=== PATIENT | male | born 2000 | race Caucasian/White ===

== ENCOUNTER 2022-02-09 07:49 | Emergency (ER) | payer OTHER, SELFPAY ==
[2022-02-09 08:01] VITALS: BP 134/89; PULSE 64; RESP 18; TEMP 36.3; O2SAT 99; BMI 28.7
--- NOTE | 2022-02-09 08:45 | ED.GENADULT ---
HPI - General Adult General Chief complaint: Dizziness/Vertigo Stated complaint: constipation/headache/dizzy/weakness Time Seen by Provider: 02/09/22 08:03 History of Present Illness HPI narrative: 21-year-old man presenting to the emergency department with 2 days of just feeling unwell. A general sense of nausea. Has not vomited. Mild headache. No visual disturbance. No fever. No rash. Is constipated. Notes himself to normally have daily bowel movements but it has been a couple of days now. Is lightheaded when he goes to to stand. Not actually dizzy. Does have a history of headaches. 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 He also says he has never been in the emergency department by himself. Problem List Medical Problems: Amblyopia Wears glasses; Followed At 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 Surgical Problems: No pertinent past surgical history Family History Problems: Family history of thyroid disease Mother and PGM. Family history of multiple sclerosis Paternal grandfather and paternal great uncle. Social History Problems: No secondhand smoke exposure Past Problems Medical Problems: Thrombocytopenia Anemia Past Medical History Past Medical History: Yes Other Medical Problems; No COPD, No Asthma (PNX), No High Blood Pressure, No Congestive Heart Failure, No Coronary Artery Disease, No Diabetes, No Stroke, No Cardiac Arrhythmia, No Stomach Problems, No Irritable Bowel Syndrome, No Reflux (GERD), No Cancer, No Seizures Other Medical Problems Comment: frias syndrom bile duct syndrome Related Data Home Medications Medication Instructions Recorded Confirmed sirolimus 1 mg tablet mg PO 02/09/22 Allergies Allergy/AdvReac Type Severity Reaction Status Date / Time No Known Drug Allergies Allergy Verified 02/09/22 08:01 Review of Systems Status of ROS: Reports: 6 or more systems reviewed and unremarkable except as noted in History and below PFSH PFSH Social History Smoking Status: Never smoker How often do you have a drink containing alcohol: never AUDIT-C Alcohol total score: 0 Non-prescribed substance use: denies use Exam Narrative: Exam Narrative: Tall stature. Mild conjunctival injection. Slightly congested. Cranial nerves 2-12 intact. He is breathing easily. Lungs are clear. Neck is supple. Does not resist rotation movement of his neck. Cardiovascular was regular rate and rhythm no murmurs rubs or gallops appreciated. Abdomen is soft a little overweight nontender. Normoactive bowel sounds Moving all extremities without difficulty. There is no peripheral edema. Skin is warm and dry without evidence of trauma, no active bleeding/bruising. Const: Vital Signs, click to edit/add: Vital Signs - 24 hr 02/09/22 08:01 02/09/22 09:20 02/09/22 11:15 Temperature 97.3 F L 97.3 F L Pulse Rate [Left P ulse Oximeter] 64 64 Pulse Rate [orthos tatic lying] 60 Pulse Rate [orthos tatic sitting] 62 Pulse Rate [orthos tatic standing] 64 Respiratory Rate 18 18 Blood Pressure [Le ft Upper Arm] 134/89 124/89 Blood Pressure [or thostatic lying] 139/94 H Blood Pressure [or thostatic sitting] 130/92 H Blood Pressure [or thostatic standing ] 124/89 Pulse Oximetry 99 Oxygen Delivery Me thod Room Air Documenting provider has reviewed patient's vital signs: yes Course Course Hospital Course: He would like some relief of his headache and so IV was established. With his concerns of ?low blood? a recheck. I did review records and I believe nearly 2 weeks ago had a hemoglobin [place] 13 [place] [id number]. Reevaluation(s) Reevaluation #1: Was requesting departure as hydration and antiemetic had relieved him of his headache. Consultations Consultation #1: Spoke with mom. She thinks that lack of sleep and not taking good care of himself, being a teenager, has caught up with him and that is really with contributed to his headache. His medications as well as can evidently cause constipation. They are familiar with dealing with this, some treatment involves MiraLax. Vital Signs Vital signs: Initial Vital Signs Temperature 97.3 F L 02/09/22 08:01 Temperature Source Temporal Artery Scan 02/09/22 08:01 Pulse Rate 64 02/09/22 08:01 Respiratory Rate 18 02/09/22 08:01 Blood Pressure 134/89 02/09/22 08:01 Blood Pressure Mean 104 02/09/22 08:01 Blood Pressure Position Sitting 02/09/22 08:01 Pulse Oximetry 99 02/09/22 08:01 Oxygen Delivery Method 02/09/22 08:01 Vital Signs Temperature 97.3 F L 02/09/22 08:01 Pulse Rate 64 02/09/22 08:01 Respiratory Rate 18 02/09/22 08:01 Blood Pressure 134/89 02/09/22 08:01 Pulse Oximetry 99 02/09/22 08:01 Oxygen Delivery Method 02/09/22 08:01 Temperature 97.3 F L 02/09/22 11:15 Pulse Rate 64 02/09/22 11:15 Respiratory Rate 18 02/09/22 11:15 Blood Pressure 124/89 02/09/22 11:15 Pulse Oximetry 99 02/09/22 08:01 Oxygen Delivery Method 02/09/22 08:01 Medical Decision Making MDM Narrative Medical decision making narrative: Hemoglobin looks to be stable and platelets increased since last checked. Marlo declined abdominal x-ray which I was doing just for evaluation of degree of constipation with underlying nausea. Declined partly because mom felt unnecessary; I do not entirely disagree. EKG was also done showing sinus bradycardia a rate of 59. CRP was not elevated. Chemistries normal and COVID testing was negative Lab Data Labs: Lab Results 02/09/22 02/09/22 02/09/22 Range/Units 09:37 09:37 09:37 WBC 5.77 (4.50-11.00) K/uL RBC 4.92 (4.30-5.90) m/uL Hgb 13.3 L (13.5-17.5) gm/dL Hct 39.3 (37.0-53.0) % MCV 80 (80-100) fL MCH 27 (26-34) pg MCHC 34 (32-36) gm/dL RDW Coeff of Grecia 13.1 (11.5-15.5) % Plt Count 92 L (140-440) K/uL Neut % (Auto) 50.2 (42.0-72.0) % Lymph % (Auto) 40.9 (20-44) % Garden % (Auto) 8.0 (0.0-11.0) % Eos % (Auto) 0.5 (0.0-7.0) % Baso % (Auto) 0.2 (0.0-3.0) % Neut # (Auto) 2.90 (1.7-7.0) K/uL Lymph # (Auto) 2.36 (0.90-2.90) K/uL Garden # (Auto) 0.50 (0.00-0.90) K/UL Eos # (Auto) 0.03 (0.00-0.50) K/uL Baso # (Auto) 0.01 (0.00-0.30) K/uL Abs Immat Gran (auto) 0.01 (0.00-0.30) K/uL Sodium 140 (135-149) mmol/L Potassium 4.2 (3.6-5.1) mmol/L Chloride 105 (96-114) mmol/L Carbon Dioxide 26 (20-32) mmol/L BUN 11 (5-24) mg/dL Creatinine 0.8 (0.6-1.2) mg/dL Estimated Creat Clear 177.51 Estimated GFR 131 ml/min Glucose 112 (60-115) mg/dL Calcium 9.6 (8.7-10.8) mg/dL Total Bilirubin 0.4 (0.1-1.5) mg/dL AST 24 (12-35) U/L ALT 22 (4-50) U/L Alkaline Phosphatase 128 (65-260) U/L C-Reactive Protein < 0.5 L (0.5-1.0) mg/dL Total Protein 7.5 (6.0-8.3) g/dL Albumin 4.6 (3.3-5.0) g/dL SARS-CoV-2 (PCR) Negative SARS-CoV-2 (Negative) Discharge Plan Discharge Clinical Impression: Headache, Constipation Patient Disposition: Home, Self-Care Condition: Improved Additional Instructions: Focus on hydration. In persons prone to headaches I do think it is important to get regular and quality sleep. A regular schedule helps with this. Also a little heart pumping exercise daily is a good idea. I will call you with results of chemistries and COVID if we need to discuss them. Otherwise presume they're within normal limits/negative. Prescriptions: No Action sirolimus 1 mg tablet PO Label Comments: TAKE THREE TABLETS BY MOUTH EVERY DAY Follow Up/Referrals: Fabio Campos MD [Referring] - Stand Alone [facility]
[2022-02-09 09:20] VITALS: BP 124/89; BP 130/92; BP 139/94; PULSE 60; PULSE 62; PULSE 64
[2022-02-09] MEDS: 0.9 % SODIUM CHLORIDE 1000 ml 1,000 ML IV (09:40)
[2022-02-09 10:01] LABS: Basophils Absolute Auto 0.01 K/uL (0.00-0.30); Basophils Percent Auto 0.2 % (0.0-3.0); Eosinophils Absolute Auto 0.03 K/uL (0.00-0.50); Eosinophils Percent Auto 0.5 % (0.0-7.0); Hematocrit 39.3 % (37.0-53.0); Hemoglobin* 13.3 gm/dL (13.5-17.5); Immature Granulocytes Abs Auto 0.01 K/uL (0.00-0.30); Lymphocytes Absolute Auto 2.36 K/uL (0.90-2.90); Lymphocytes Percent Auto 40.9 % (20-44); Mean Corpuscular HGB Conc 34 gm/dL (32-36); Mean Corpuscular Hemoglobin 27 pg (26-34); Mean Corpuscular Volume 80 fL (80-100); Neutrophils Percent Auto 50.2 % (42.0-72.0); Platelet Count* 92 K/uL (140-440); RDW Coefficient of Variation % 13.1 % (11.5-15.5); Red Blood Count 4.92 m/uL (4.30-5.90); White Blood Count* 5.77 K/uL (4.50-11.00)
[2022-02-09 10:03] LABS: Slide Review Reflex No
[2022-02-09 10:54] LABS: Albumin* 4.6 g/dL (3.3-5.0); Chloride* 105 mmol/L (96-114)
[2022-02-09 10:55] LABS: Potassium* 4.2 mmol/L (3.6-5.1); Sodium* 140 mmol/L (135-149)
[2022-02-09 10:57] LABS: Bilirubin Total* 0.4 mg/dL (0.1-1.5); Creatinine* 0.8 mg/dL (0.6-1.2); Est. Creatinine Clearance* 177.51; Estimated Glomerular Filt Rate 131 ml/min
[2022-02-09 10:58] LABS: Alanine Aminotransferase* 22 U/L (4-50); Alkaline Phosphatase* 128 U/L (65-260); Aspartate Amino Transferase* 24 U/L (12-35); Blood Urea Nitrogen* 11 mg/dL (5-24); Calcium* 9.6 mg/dL (8.7-10.8); Carbon Dioxide* 26 mmol/L (20-32); Glucose* 112 mg/dL (60-115); Total Protein* 7.5 g/dL (6.0-8.3)
[2022-02-09 11:01] LABS: C Reactive Protein* < 0.5 mg/dL (0.5-1.0)
[2022-02-09 11:06] LABS: SARS PCR* Negative SARS-CoV-2 (Negative)
[2022-02-09 11:15] VITALS: BP 124/89; PULSE 64; RESP 18; TEMP 36.3
== END 2022-02-09 11:16 | disposition home or self-care (01) ==
PROVIDERS: Emergency Provider Family Medicine
DX: R51.9 Headache, unspecified (principal); K59.00 Constipation, unspecified
CPT/HCPCS: 36415; 80053; 85025; 86140; 87635; 93005; 96374; 99283; J7030

== ENCOUNTER 2023-12-02 10:09 | Outpatient (RCR) | payer OTHER, SELFPAY ==
[2021-12-15 16:19] LABS: Slide Review Reflex No
[2021-12-15 16:35] LABS: Basophils Absolute Auto 0.01 K/uL (0.00-0.30); Basophils Percent Auto 0.1 % (0.0-3.0); Eosinophils Absolute Auto 0.03 K/uL (0.00-0.50); Eosinophils Percent Auto 0.4 % (0.0-7.0); Hematocrit 41.2 % (37.0-53.0); Hemoglobin* 13.8 gm/dL (13.5-17.5); Immature Granulocytes Abs Auto 0.04 K/uL (0.00-0.30); Lymphocytes Absolute Auto 2.37 K/uL (0.90-2.90); Lymphocytes Percent Auto 31.6 % (20-44); Mean Corpuscular HGB Conc 34 gm/dL (32-36); Mean Corpuscular Hemoglobin 27 pg (26-34); Mean Corpuscular Volume 79 fL (80-100); Neutrophils Absolute Auto 4.45 K/uL (1.7-7.0); Neutrophils Percent Auto 59.4 % (42.0-72.0); Platelet Count* 84 K/uL (140-440); RDW Coefficient of Variation % 13.5 % (11.5-15.5); Red Blood Count 5.19 m/uL (4.30-5.90)
[2021-12-15 16:44] LABS: Alanine Aminotransferase* 34 U/L (4-50); Creatinine* 0.8 mg/dL (0.6-1.2); Estimated Glomerular Filt Rate 130.74
[2022-01-27 14:43] LABS: Basophils Absolute Auto 0.02 K/uL (0.00-0.30); Basophils Percent Auto 0.4 % (0.0-3.0); Eosinophils Absolute Auto 0.04 K/uL (0.00-0.50); Eosinophils Percent Auto 0.8 % (0.0-7.0); Hematocrit 39.3 % (37.0-53.0); Hemoglobin* 13.1 gm/dL (13.5-17.5); Immature Granulocytes Abs Auto 0.01 K/uL (0.00-0.30); Lymphocytes Absolute Auto 2.11 K/uL (0.90-2.90); Lymphocytes Percent Auto 43.3 % (20-44); Mean Corpuscular HGB Conc 33 gm/dL (32-36); Mean Corpuscular Hemoglobin 27 pg (26-34); Mean Corpuscular Volume 81 fL (80-100); Monocytes Percent Auto 8.2 % (0.0-11.0); Neutrophils Absolute Auto 2.29 K/uL (1.7-7.0); Neutrophils Percent Auto 47.1 % (42.0-72.0); Platelet Count* 78 K/uL (140-440); Red Blood Count 4.85 m/uL (4.30-5.90); White Blood Count* 4.87 K/uL (4.50-11.00)
[2022-01-27 14:48] LABS: Slide Review Reflex No
[2022-01-27 15:01] LABS: Alanine Aminotransferase* 18 U/L (4-50); Creatinine* 0.8 mg/dL (0.6-1.2); Estimated Glomerular Filt Rate 131 ml/min
[2022-05-03 15:46] LABS: Basophils Absolute Auto 0.02 K/uL (0.00-0.30); Basophils Percent Auto 0.3 % (0.0-3.0); Eosinophils Absolute Auto 0.09 K/uL (0.00-0.50); Eosinophils Percent Auto 1.2 % (0.0-7.0); Hematocrit 41.1 % (37.0-53.0); Hemoglobin* 13.8 gm/dL (13.5-17.5); Immature Granulocytes Abs Auto 0.01 K/uL (0.00-0.30); Immature Granulocytes Pct Auto 0.1 %; Lymphocytes Percent Auto 44.7 % (20-44); Mean Corpuscular HGB Conc 34 gm/dL (32-36); Mean Corpuscular Hemoglobin 27 pg (26-34); Mean Corpuscular Volume 80 fL (80-100); Monocytes Percent Auto 6.9 % (0.0-11.0); Neutrophils Absolute Auto 3.57 K/uL (1.7-7.0); Neutrophils Percent Auto 46.8 % (42.0-72.0); Platelet Count* 229 K/uL (140-440); RDW Coefficient of Variation % 12.8 % (11.5-15.5); Red Blood Count 5.17 m/uL (4.30-5.90); White Blood Count* 7.63 K/uL (4.50-11.00)
[2022-05-03 15:55] LABS: Slide Review Reflex No
[2022-05-03 16:22] LABS: Alanine Aminotransferase* 33 U/L (4-50); Creatinine* 0.7 mg/dL (0.6-1.2); Estimated Glomerular Filt Rate 136 ml/min
[2023-01-07 19:42] LABS: Basophils Absolute Auto 0.02 K/uL (0.00-0.30); Basophils Percent Auto 0.2 % (0.0-3.0); Eosinophils Absolute Auto 0.06 K/uL (0.00-0.50); Eosinophils Percent Auto 0.6 % (0.0-7.0); Hematocrit 39.2 % (37.0-53.0); Immature Granulocytes Abs Auto 0.02 K/uL (0.00-0.30); Immature Granulocytes Pct Auto 0.2 %; Lymphocytes Absolute Auto 2.99 K/uL (0.90-2.90); Lymphocytes Percent Auto 30.1 % (20-44); Mean Corpuscular HGB Conc 33 gm/dL (32-36); Mean Corpuscular Hemoglobin 26 pg (26-34); Mean Corpuscular Volume 80 fL (80-100); Monocytes Percent Auto 6.4 % (0.0-11.0); Neutrophils Absolute Auto 6.22 K/uL (1.7-7.0); Neutrophils Percent Auto 62.5 % (42.0-72.0); Platelet Count* 252 K/uL (140-440); RDW Coefficient of Variation % 13.4 % (11.5-15.5); Red Blood Count 4.93 m/uL (4.30-5.90); White Blood Count* 9.95 K/uL (4.50-11.00)
[2023-01-07 19:57] LABS: Creatinine* 0.8 mg/dL (0.5-1.5); Estimated Glomerular Filt Rate 130 ml/min
[2023-01-07 19:58] LABS: Alanine Aminotransferase* 29 U/L (4-50)
[2023-01-07 20:03] LABS: Slide Review Reflex No
[2023-04-18 15:14] LABS: Basophils Absolute Auto 0.01 K/uL (0.00-0.30); Basophils Percent Auto 0.1 % (0.0-3.0); Eosinophils Absolute Auto 0.05 K/uL (0.00-0.50); Eosinophils Percent Auto 0.7 % (0.0-7.0); Hematocrit 39.7 % (37.0-53.0); Hemoglobin* 13.1 gm/dL (13.5-17.5); Immature Granulocytes Abs Auto 0.04 K/uL (0.00-0.30); Immature Granulocytes Pct Auto 0.6 %; Lymphocytes Percent Auto 47.1 % (20-44); Mean Corpuscular HGB Conc 33 gm/dL (32-36); Mean Corpuscular Hemoglobin 26 pg (26-34); Mean Corpuscular Volume 78 fL (80-100); Monocytes Percent Auto 9.2 % (0.0-11.0); Neutrophils Absolute Auto 2.89 K/uL (1.7-7.0); Neutrophils Percent Auto 42.3 % (42.0-72.0); Platelet Count* 264 K/uL (140-440); RDW Coefficient of Variation % 13.2 % (11.5-15.5); Red Blood Count 5.07 m/uL (4.30-5.90); White Blood Count* 6.84 K/uL (4.50-11.00)
[2023-04-18 15:40] LABS: Slide Review Reflex No
[2023-04-18 16:14] LABS: Alanine Aminotransferase* 39 U/L (4-50); Creatinine* 0.9 mg/dL (0.5-1.5); Estimated Glomerular Filt Rate 125 ml/min
[2023-05-26 23:49] LABS: Eosinophils Absolute Auto 0.05 K/uL (0.00-0.50); Eosinophils Percent Auto 0.7 % (0.0-7.0); Hematocrit 38.8 % (37.0-53.0); Hemoglobin* 12.7 gm/dL (13.5-17.5); Immature Granulocytes Abs Auto 0.01 K/uL (0.00-0.30); Immature Granulocytes Pct Auto 0.1 %; Lymphocytes Absolute Auto 2.94 K/uL (0.90-2.90); Lymphocytes Percent Auto 42.2 % (20-44); Mean Corpuscular HGB Conc 33 gm/dL (32-36); Mean Corpuscular Hemoglobin 26 pg (26-34); Mean Corpuscular Volume 79 fL (80-100); Platelet Count* 283 K/uL (140-440); RDW Coefficient of Variation % 13.4 % (11.5-15.5); Red Blood Count 4.93 m/uL (4.30-5.90); White Blood Count* 6.96 K/uL (4.50-11.00)
[2023-05-26 23:53] LABS: Slide Review Reflex No
[2023-05-26 23:54] LABS: Alanine Aminotransferase* 39 U/L (4-50); Creatinine* 0.8 mg/dL (0.5-1.5); Estimated Glomerular Filt Rate 130 ml/min
[2023-06-30 18:21] LABS: Basophils Absolute Auto 0.01 K/uL (0.00-0.30); Basophils Percent Auto 0.1 % (0.0-3.0); Eosinophils Absolute Auto 0.04 K/uL (0.00-0.50); Eosinophils Percent Auto 0.5 % (0.0-7.0); Hemoglobin* 13.4 gm/dL (13.5-17.5); Immature Granulocytes Abs Auto 0.02 K/uL (0.00-0.30); Immature Granulocytes Pct Auto 0.2 %; Lymphocytes Absolute Auto 3.71 K/uL (0.90-2.90); Lymphocytes Percent Auto 43.2 % (20-44); Mean Corpuscular HGB Conc 33 gm/dL (32-36); Mean Corpuscular Hemoglobin 25 pg (26-34); Mean Corpuscular Volume 77 fL (80-100); Monocytes Percent Auto 6.5 % (0.0-11.0); Neutrophils Absolute Auto 4.24 K/uL (1.7-7.0); Neutrophils Percent Auto 49.5 % (42.0-72.0); Platelet Count* 338 K/uL (140-440); RDW Coefficient of Variation % 13.2 % (11.5-15.5); Red Blood Count 5.34 m/uL (4.30-5.90); White Blood Count* 8.58 K/uL (4.50-11.00)
[2023-06-30 18:25] LABS: Slide Review Reflex No
[2023-06-30 18:44] LABS: Creatinine* 0.8 mg/dL (0.5-1.5); Estimated Glomerular Filt Rate 130 ml/min
[2023-06-30 18:45] LABS: Alanine Aminotransferase* 42 U/L (4-50)
[2023-10-05 15:57] LABS: Basophils Absolute Auto 0.01 K/uL (0.00-0.30); Basophils Percent Auto 0.1 % (0.0-3.0); Eosinophils Absolute Auto 0.06 K/uL (0.00-0.50); Eosinophils Percent Auto 0.7 % (0.0-7.0); Hematocrit 39.2 % (37.0-53.0); Hemoglobin* 12.7 gm/dL (13.5-17.5); Immature Granulocytes Abs Auto 0.02 K/uL (0.00-0.30); Immature Granulocytes Pct Auto 0.2 %; Lymphocytes Percent Auto 37.6 % (20-44); Mean Corpuscular HGB Conc 32 gm/dL (32-36); Mean Corpuscular Hemoglobin 26 pg (26-34); Mean Corpuscular Volume 79 fL (80-100); Monocytes Percent Auto 7.2 % (0.0-11.0); Neutrophils Absolute Auto 4.61 K/uL (1.7-7.0); Neutrophils Percent Auto 54.2 % (42.0-72.0); Platelet Count* 264 K/uL (140-440); Red Blood Count 4.98 m/uL (4.30-5.90); White Blood Count* 8.51 K/uL (4.50-11.00)
[2023-10-05 16:08] LABS: Slide Review Reflex No
[2023-10-05 17:26] LABS: Alanine Aminotransferase* 25 U/L (4-50); Creatinine* 0.7 mg/dL (0.5-1.5); Estimated Glomerular Filt Rate 135 ml/min
[2023-12-02 10:26] LABS: Basophils Absolute Auto 0.01 K/uL (0.00-0.30); Basophils Percent Auto 0.1 % (0.0-3.0); Eosinophils Absolute Auto 0.08 K/uL (0.00-0.50); Hematocrit 39.7 % (37.0-53.0); Hemoglobin* 13.1 gm/dL (13.5-17.5); Immature Granulocytes Abs Auto 0.02 K/uL (0.00-0.30); Immature Granulocytes Pct Auto 0.3 %; Lymphocytes Absolute Auto 3.36 K/uL (0.90-2.90); Lymphocytes Percent Auto 42.3 % (20-44); Mean Corpuscular HGB Conc 33 gm/dL (32-36); Mean Corpuscular Hemoglobin 26 pg (26-34); Mean Corpuscular Volume 77 fL (80-100); Monocytes Percent Auto 8.8 % (0.0-11.0); Neutrophils Absolute Auto 3.78 K/uL (1.7-7.0); Neutrophils Percent Auto 47.5 % (42.0-72.0); Platelet Count* 297 K/uL (140-440); RDW Coefficient of Variation % 13.2 % (11.5-15.5); Red Blood Count 5.14 m/uL (4.30-5.90); White Blood Count* 7.95 K/uL (4.50-11.00)
[2023-12-02 10:27] LABS: Slide Review Reflex No
[2023-12-02 10:43] LABS: Alanine Aminotransferase* 52 U/L (4-50); Creatinine* 0.7 mg/dL (0.5-1.5); Estimated Glomerular Filt Rate 134 ml/min
== END 2024-02-08 11:00 | disposition home or self-care (01) ==
LOC: LAB 10:09
PROVIDERS: PCP Family Medicine; Visit Provider Pediatrics
DX: D69.41 Evans syndrome (principal)
CPT/HCPCS: 36415; 80195; 82565; 84460; 85025

== ENCOUNTER 2024-01-09 11:40 | Emergency (ER) | payer OTHER, SELFPAY ==
[2024-01-09] VITALS (14 sets, daily range): BP systolic 123–145; BP diastolic 68–92; PULSE 63–76; RESP 18; TEMP 36.4; O2SAT 97–100; BMI 31.2
--- NOTE | 2024-01-09 12:07 | CRLHL7_ITS ---
For Patients: As a result of the Century Cures Act, medical imaging exams and procedure reports are released immediately into your electronic medical record. You may view this report before your referring provider. If you have questions, please contact your health care provider. Indication: Right-sided abdominal pain and vomiting Technique: Volumetric multidetector CT images of the abdomen and pelvis were obtained after the administration of intravenous contrast. 122 cc Isovue 370 low osmolar intravenous contrast Comparison: None available. Findings: The lung bases are clear. The liver is normal in attenuation without intrahepatic biliary ductal dilatation. The portal vein is patent. The gallbladder is unremarkable without evidence of radiopaque calculus. There is no significant common biliary ductal dilatation or abrupt cut off. The spleen is normal in enhancement and size. The stomach and duodenum are grossly unremarkable. The pancreas is normal in enhancement without significant atrophy. The adrenal glands are unremarkable. The kidneys demonstrate preserved corticomedullary differentiation without evidence of obstructive uropathy. There is minimal fluid seen within the central small bowel with mild thickening of the central small bowel with mucosal hyperemia. Additional minimal fluid is seen within the proximal colon. The appendix is unremarkable. Scattered reactive central mesenteric lymph nodes are appreciated. No retroperitoneal or inguinal adenopathy. The aorta is nonaneurysmal. There is no significant atherosclerotic disease appreciated. The solid pelvic viscera are grossly unremarkable. There is no free fluid or free air. The anterior abdominal wall is intact without significant hernias. The lumbar vertebral body heights are grossly maintained in satisfactory alignment without evidence of displaced fracture, lytic or blastic lesion. Impression: Minimal fluid and mucosal hyperemia seen within the small bowel and colon which may represent infectious or inflammatory enterocolitis changes. Normal appendix. Please note that all CT scans at this facility use dose modulation, iterative reconstruction, and/or weight-based dosing when appropriate to reduce radiation dose to as low as reasonably achievable. Dictated by Roger Noland MD @ 01/09/2024 1:48:48 PM (Electronically Signed)
--- NOTE | 2024-01-09 12:12 | ED_ITS ---
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 Presents here with 48 hours a feeling unwell. He describes some vomiting today 3-4 times, no oral intake really. Abdominal pain more right-sided associated with this. He is worried that is evidence syndrome is gotten worse. He normally does not get abdominal pain with this. And also the fact he is not keeping any fluids down. He had labs checked a few days ago per his corporate travel coordinator at [facility]. And he has not got a call back because of this. He describes no history of fever chills. There is no coughing cold-like symptoms or sore throat. He denies any dysuria, he did however note on the drive over here or walking he has right-sided abdominal pain. He has had a previous operation on his abdomen where they took a piece of his liver? He has not had any diarrhea there is a history of constipation in his past. He presents here with his significant other. No history of smoking drug use. Associated nausea: Yes Associated abdominal pain: Yes Treatment prior to arrival: none Related Data Home Medications ?Medication ?Instructions ?Recorded ?Confirmed sirolimus 1 mg tablet mg PO 02/09/22 sertraline 100 mg tablet 150 mg PO QAM 01/09/24 01/09/24 Previous Rx's ?Medication ?Instructions ?Recorded ondansetron HCl 4 mg tablet 4 mg PO BID-TID PRN nausea and 01/09/24 vomiting #14 tabs Allergies Allergy/AdvReac Type Severity Reaction Status Date / Time No Known Drug Allergies Allergy Verified 01/09/24 12:38 Review of Systems Status of ROS: Reports: 10 or more systems reviewed and unremarkable except as noted in History and below GI: Reports: nausea PFSH PFSH Social History Smoking Status: Current every day smoker Do you use any of these nicotine containing products: Vaping Products How often do you have a drink containing alcohol: never AUDIT-C Alcohol total score: 0 Non-prescribed substance use: marijuana (any form) service: No Exam Narrative: Exam Narrative: Patient is a very nice gentleman I am seeing him in room 5. He appears to be in no apparent distress, but does have emesis bag. His pupils are equal round reactive to light, there is no scleral icterus or T his TMs are normal, oropharynx is normal good hydration status there is no lymphadenopathy anterior posterior chains chest is good air entry bilateral with no wheezing crackles noted heart sounds are normal. Right-sided abdominal pain maximal in the right lower quadrant but also the right side of his abdomen is noted. I do not detect a Hill sign. Bowel sounds are normal, there is no radiation of pain to his back. There is no organomegaly. No hernias noted. Previous scar from her previous umbilical procedures notable. No CVA tenderness. Moves all extremities independently well, no skin turgor is normal, there is normal muscle mass. Const: Vital Signs, click to edit/add: Vital Signs - 24 hr 01/09/24 11:46 01/09/24 12:47 01/09/24 13:00 Temperature 97.5 F L Pulse Rate 63 69 Pulse Rate [Pulse Oximeter] 74 Respiratory Rate 18 Blood Pressure Blood Pressure [Ri ght Upper Arm] 128/84 Pulse Oximetry 97 97 98 Oxygen Delivery Me od Room Air 01/09/24 13:14 01/09/24 13:15 01/09/24 13:30 Temperature Pulse Rate 66 73 66 Pulse Rate [Pulse Oximeter] Respiratory Rate Blood Pressure 127/68 Blood Pressure [Ri ght Upper Arm] Pulse Oximetry 100 100 [facility] 01/[facility] 13:32 01/09/24 13:45 01/09/24 14:00 Temperature Pulse Rate 64 67 67 Pulse Rate [Pulse Oximeter] Respiratory Rate Blood Pressure 123/68 Blood Pressure [Ri ght Upper Arm] Pulse Oximetry 99 99 98 Oxygen Delivery Pr thod 01/09/24 14:03 01/09/24 14:15 01/09/24 14:30 Temperature Pulse Rate 71 73 76 Pulse Rate [Pulse Oximeter] Respiratory Rate Blood Pressure 145/92 H Blood Pressure [Ri ght Upper Arm] Pulse Oximetry 99 99 99 Oxygen Delivery Pr thod 01/09/24 14:31 01/09/24 14:37 Temperature Pulse Rate 73 Pulse Rate [Pulse Oximeter] Respiratory Rate 18 Blood Pressure 137/84 Blood Pressure [Ri ght Upper Arm] Pulse Oximetry 100 Oxygen Delivery Me thod Documenting provider has reviewed patient's vital signs: yes Course Course ED Course: I went back in and checked on the patient after 1 and half bags, his abdominal pain at totally gone away. Examination of his abdomen revealed no tenderness at all. Bowel sounds are good. I reviewed the CT findings with him that showed no evidence of appendicitis, likely some enterocolitis was noted. I think it would be reasonable at this point to let him go home with some Zofran and fluids. And he felt good with this plan. Vital Signs Vital signs: Initial Vital Signs Temperature 97.5 F L 01/09/24 11:46 Temperature Source Temporal Artery Scan 01/09/24 11:46 Pulse Rate 74 01/09/24 11:46 Respiratory Rate 18 01/09/24 11:46 Blood Pressure 128/84 01/09/24 11:46 Blood Pressure Mean 98 01/09/24 11:46 Blood Pressure Position Right Lateral 01/09/24 11:46 Pulse Oximetry 97 01/09/24 11:46 Oxygen Delivery Method Room Air 01/09/24 11:46 Vital Signs Temperature 97.5 F L 01/09/24 11:46 Pulse Rate 74 01/09/24 11:46 Respiratory Rate 18 01/09/24 11:46 Blood Pressure 128/84 01/09/24 11:46 Pulse Oximetry 97 01/09/24 11:46 Oxygen Delivery Method Room Air 01/09/24 11:46 Temperature 97.5 F L 01/09/24 11:46 Pulse Rate 73 01/09/24 14:31 Respiratory Rate 18 01/09/24 14:37 Blood Pressure 137/84 01/09/24 14:31 Pulse Oximetry 100 01/09/24 14:31 Oxygen Delivery Method Room Air 01/09/24 11:46 Medications Administered Medications: Discontinued Medications Generic Name Dose Route Start Last Admin Trade Name Freq PRN Reason Stop Dose Admin Hydromorphone HCl 0.5 mg 01/09/24 12:05 01/09/24 12:22 Hydromorphone 0.5 Mg/0.5 Ml Inj IVP 01/09/24 12:06 0.5 mg ONCE ONE Administration Sodium Chloride 1,000 mls @ 1,000 mls/hr 01/09/24 12:15 01/09/24 13:20 0.9 % Sodium Chloride 1000 Ml IV 01/09/24 13:14 Infused .Q1H JOEL Infusion Sodium Chloride 1,000 mls @ 1,000 mls/hr 01/09/24 12:45 01/09/24 14:35 0.9 % Sodium Chloride 1000 Ml IV 01/09/24 13:44 Infused .Q1H JOEL Infusion Ondansetron HCl 4 mg 01/09/24 12:05 01/09/24 12:20 Ondansetron 2 Mg/Ml Inj IVP 01/09/24 12:06 4 mg ONCE ONE Administration MDM - Nausea/Vomiting/Diarrhea MDM Narrative Medical decision making narrative: During this evaluation of this patient I considered multiple differential diagnosis is which included the life-threatening such as appendicitis, aortic aneurysm, mesenteric ischemia, bowel perforation, volvulus, and bowel obstruction. Other differential diagnosis is include but are not limited to cholecystitis, pancreatitis, hepatitis, gastritis, GERD, diverticulitis, peptic ulcer disease, pyelonephritis/UTI, renal colic/stone, testicular torsion as well as other acute scrotal processes, inflammatory bowel disease, as well as other etiologies I explained to him, we will start an IV give him some Zofran IV fluids a little bit of pain medication. Keep him NPO, and then also get a CT of his abdomen and pelvis, I am leaning towards appendicitis although could have cholecystitis, given his history of Rai syndrome and hemolytic anemia. Differential Diagnosis Differential diagnosis: Likely traveler's diarrhea, food poisoning, gastroenteritis, clostridium difficile infection, drug-induced nausea and vomiting and dehydration Medical Records Attestation: I reviewed the patient's medical records. Lab Data Attestation: I reviewed the patient's lab results. Labs: Lab Results 01/09/24 01/09/24 Range/Units 12:12 13:50 WBC 12.61 H (4.50-11.00) K/uL RBC 5.15 (4.30-5.90) m/uL Hgb 12.8 L (13.5-17.5) gm/dL Hct 39.1 (37.0-53.0) % MCV 76 L (80-100) fL MCH 25 L (26-34) pg MCHC 33 (32-36) gm/dL RDW Coeff of Grecia 13.0 (11.5-15.5) % Plt Count 254 (140-440) K/uL Neut % (Auto) 74.5 H (42.0-72.0) % Lymph % (Auto) 16.1 L (20-44) % Woods % (Auto) 8.6 (0.0-11.0) % Eos % (Auto) 0.5 (0.0-7.0) % Baso % (Auto) 0.1 (0.0-3.0) % Neut # (Auto) 9.40 H (1.7-7.0) K/uL Lymph # (Auto) 2.00 (0.90-2.90) K/uL Woods # (Auto) 1.10 H (0.00-0.90) K/UL Eos # (Auto) 0.10 (0.00-0.50) K/uL Baso # (Auto) 0.00 (0.00-0.30) K/uL Abs Immat Gran (auto) 0.00 (0.00-0.30) K/uL Imm/Tot Granulo (auto) 0.2 % Sodium 139 (135-149) mmol/L Potassium 3.8 (3.6-5.1) mmol/L Chloride 108 (96-114) mmol/L Carbon Dioxide 23 (20-32) mmol/L Anion Gap 8 (7-15) mEq/L BUN 9 (5-24) mg/dL Creatinine 0.6 (0.5-1.5) mg/dL Estimated Creat Clear 232.77 Estimated GFR 141 ml/min Glucose 115 (60-115) mg/dL Lactate 1.5 (0.5-1.9) mmol/L Calcium 9.6 (8.4-10.6) mg/dL Total Bilirubin 0.4 (0.1-1.5) mg/dL Direct Bilirubin 0.3 (0.0-0.5) mg/dL AST 34 (12-35) U/L ALT 39 (4-50) U/L Alkaline Phosphatase 116 (40-150) U/L C-Reactive Protein 0.8 (0.5-1.0) mg/dL Total Protein 7.4 (6.0-8.3) g/dL Albumin 4.6 (3.3-5.0) g/dL Amylase 64 (18-89) U/L Procalcitonin 0.03 (<0.50) ng/mL Urine Color Yellow (Yellow) Urine Appearance Clear (Clear) Urine pH 6.0 (5.0-8.5) Ur Specific [place] 1.010 (1.000-1.030) Urine Protein Negative (Negative) Urine Glucose (UA) Negative (Negative) Urine Ketones Negative (Negative) Urine Blood Negative (Negative) Urine Nitrite Negative (Negative) Urine Bilirubin Negative (Negative) Urine Urobilinogen 0.2 (0.2-1.0) Ur Leukocyte Esterase Negative (Negative) Urine RBC 0-2 (0-2) Urine WBC 0-2 (0-5) Ur Squamous Epith Cells None (None-Few) Urine Bacteria None (None) Imaging Data CT scan - abdomen: Attestation: I have reviewed the pertinent imaging results. My impression: No evidence of appendicitis, some fluid within the small bowel, consistent with enterocolitis. Radiologist's impression: I reviewed the radiology report. Discharge Plan Discharge Clinical Impression: Gastroenteritis Patient Disposition: Home w/ Parent or Adult Condition: Improved Instructions: Acute Nausea and Vomiting (DC), Acute Diarrhea (ED), Enteritis (ED) Additional Instructions: Home, rest, use of medications as directed lots of fluids as you were really dry, your laboratory work was very reassuring. Return here if increasing abdo george pain fevers chills nausea vomiting or inability to keep fluids down. There is no evidence of appendicitis on your CT. Activity Level: Light activity Discharge Diet: Full Liquid Prescriptions: New ondansetron HCl 4 mg tablet 4 mg PO BID-TID PRN (Reason: nausea and vomiting) Qty: 14 0RF No Action sirolimus 1 mg tablet PO Patient Comments: TAKE THREE TABLETS BY MOUTH EVERY DAY sertraline 100 mg tablet 150 mg PO QAM Follow Up/Referrals: Provider,Not a Local [Primary Care Provider] - Stand Alone Forms: [facility] Info Instructions
[2024-01-09] MEDS: 0.9 % SODIUM CHLORIDE 1000 ml 1,000 ML IV ×2 (12:18→13:30)
[2024-01-09] MEDS: ONDANSETRON 2 MG/ML inj 4 MG IVP (12:20)
[2024-01-09 12:22] LABS: Lactate* 1.5 mmol/L (0.5-1.9)
[2024-01-09] MEDS: HYDROmorphone 0.5 mg/0.5 ml inj IVP (12:22)
[2024-01-09 12:31] LABS: Basophils Percent Auto 0.1 % (0.0-3.0); Eosinophils Percent Auto 0.5 % (0.0-7.0); Hematocrit 39.1 % (37.0-53.0); Hemoglobin* 12.8 gm/dL (13.5-17.5); Immature Granulocytes Pct Auto 0.2 %; Lymphocytes Percent Auto 16.1 % (20-44); Mean Corpuscular HGB Conc 33 gm/dL (32-36); Mean Corpuscular Hemoglobin 25 pg (26-34); Mean Corpuscular Volume 76 fL (80-100); Monocytes Percent Auto 8.6 % (0.0-11.0); Neutrophils Percent Auto 74.5 % (42.0-72.0); Platelet Count* 254 K/uL (140-440); Red Blood Count 5.15 m/uL (4.30-5.90); White Blood Count* 12.61 K/uL (4.50-11.00)
[2024-01-09 12:32] LABS: Slide Review Reflex No
[2024-01-09 12:39] LABS: Chloride* 108 mmol/L (96-114)
[2024-01-09 12:40] LABS: Potassium* 3.8 mmol/L (3.6-5.1); Sodium* 139 mmol/L (135-149)
[2024-01-09 12:41] LABS: Albumin* 4.6 g/dL (3.3-5.0)
[2024-01-09 12:42] LABS: Creatinine* 0.6 mg/dL (0.5-1.5); Est. Creatinine Clearance* 232.77; Estimated Glomerular Filt Rate 141 ml/min
[2024-01-09 12:43] LABS: Amylase* 64 U/L (18-89); Anion Gap 8 mEq/L (7-15); Blood Urea Nitrogen* 9 mg/dL (5-24); Calcium* 9.6 mg/dL (8.4-10.6); Carbon Dioxide* 23 mmol/L (20-32); Glucose* 115 mg/dL (60-115)
[2024-01-09 12:44] LABS: Alanine Aminotransferase* 39 U/L (4-50); Alkaline Phosphatase* 116 U/L (40-150); Aspartate Amino Transferase* 34 U/L (12-35); Bilirubin Direct* 0.3 mg/dL (0.0-0.5); Bilirubin Total* 0.4 mg/dL (0.1-1.5); Total Protein* 7.4 g/dL (6.0-8.3)
[2024-01-09 12:47] LABS: C Reactive Protein* 0.8 mg/dL (0.5-1.0)
[2024-01-09 13:00] LABS: Procalcitonin* 0.03 ng/mL (<0.50)
[2024-01-09 14:12] LABS: Appearance Urine Clear (Clear); Bilirubin Urine Negative (Negative); Blood Urine Negative (Negative); Color Urine Yellow (Yellow); Glucose Urine Negative (Negative); Ketones Urine Negative (Negative); Leukocyte Esterase Urine Negative (Negative); Nitrite Urine Negative (Negative); Protein Urine Negative (Negative); Urobilinogen Urine 0.2 (0.2-1.0)
[2024-01-09 14:24] LABS: RBC Urine 0-2 (0-2); WBC Urine 0-2 (0-5)
== END 2024-01-09 15:15 | disposition home or self-care (01) ==
PROVIDERS: Emergency Provider Family Medicine
DX: K52.9 Noninfective gastroenteritis and colitis, unspecified (principal)
CPT/HCPCS: 36415; 74177; 80048; 80076; 81001; 82150; 83605; 84145; 85025; 86140; 96374; 96375; 99284; J1170; J2405; J7030; Q9967

== ENCOUNTER 2024-04-11 12:38 | Outpatient (RCR) | payer OTHER, SELFPAY ==
[2024-01-06 12:13] LABS: Hematocrit* 38.0 % (37.0-53.0); Hemoglobin* 12.5 gm/dL (13.5-17.5); Immature Granulocytes Abs Auto 0.01 K/uL (0.00-0.30); Immature Granulocytes Pct Auto 0.1 %; Mean Corpuscular HGB Conc 33 gm/dL (32-36); Mean Corpuscular Hemoglobin 25 pg (26-34); Mean Corpuscular Volume 76 fL (80-100); RDW Coefficient of Variation % 13.1 % (11.5-15.5); Red Blood Count* 4.98 m/uL (4.30-5.90); White Blood Count* 7.53 K/uL (4.50-11.00)
[2024-01-06 12:16] LABS: Lymphocytes Absolute Auto 3.70 K/uL (0.90-2.90); Slide Review Reflex No
[2024-01-06 12:31] LABS: Alanine Aminotransferase* 41 U/L (4-50); Creatinine* 0.7 mg/dL (0.5-1.5); Estimated Glomerular Filt Rate 134 ml/min
[2024-02-09 17:27] LABS: Hematocrit* 38.5 % (37.0-53.0); Hemoglobin* 12.4 gm/dL (13.5-17.5); Immature Granulocytes Pct Auto 0.4 %; Mean Corpuscular HGB Conc 32 gm/dL (32-36); Mean Corpuscular Hemoglobin 25 pg (26-34); Mean Corpuscular Volume 79 fL (80-100); RDW Coefficient of Variation % 14.1 % (11.5-15.5); Red Blood Count* 4.88 m/uL (4.30-5.90); White Blood Count* 11.60 K/uL (4.50-11.00)
[2024-02-09 17:30] LABS: Immature Granulocytes Abs Auto 0.00 K/uL (0.00-0.30); Lymphocytes Absolute Auto 4.00 K/uL (0.90-2.90); Slide Review Reflex No
[2024-02-09 17:31] LABS: Alanine Aminotransferase* 52 U/L (4-50); Creatinine* 0.8 mg/dL (0.5-1.5); Estimated Glomerular Filt Rate 129 ml/min
[2024-04-11 12:56] LABS: Hematocrit* 38.6 % (37.0-53.0); Hemoglobin* 12.5 gm/dL (13.5-17.5); Immature Granulocytes Abs Auto 0.00 K/uL (0.00-0.30); Immature Granulocytes Pct Auto 0.0 %; Mean Corpuscular HGB Conc 32 gm/dL (32-36); Mean Corpuscular Hemoglobin 26 pg (26-34); Mean Corpuscular Volume 79 fL (80-100); RDW Coefficient of Variation % 13.9 % (11.5-15.5); Red Blood Count* 4.91 m/uL (4.30-5.90); White Blood Count* 7.49 K/uL (4.50-11.00)
[2024-04-11 12:57] LABS: Lymphocytes Absolute Auto 3.40 K/uL (0.90-2.90); Slide Review Reflex No
[2024-04-11 13:18] LABS: Alanine Aminotransferase* 30 U/L (4-50); Creatinine* 0.8 mg/dL (0.5-1.5); Estimated Glomerular Filt Rate 129 ml/min
== END 2025-03-20 08:51 | disposition home or self-care (01) ==
LOC: NPINS 12:38
PROVIDERS: Visit Provider Pediatrics
DX: D69.41 Evans syndrome (principal)
CPT/HCPCS: 36415; 80195; 82565; 84460; 85025

== ENCOUNTER 2025-04-25 12:47 | Emergency (ER) | payer OTHER, SELFPAY ==
--- OUTSIDE RECORDS SUMMARY | 2025-04-25 12:50 | XMS_ITS | Encounter Summary ---
Author Organization [facility] Address [address] [place] [address]. [place] [address] Care Team Providers Care Virtual Customer Assistant Name Role Phone [facility] Primary Care Prov ider Qing Savage PA-C Unavailable [phone] Encounter Details Date Type Department Care Team (Late Contact Info) Description 03/11/2025 Telephone M [facility] [address] [place] [phone] Yaneth Valencia RN Social History Tobacco Use Types Packs/Day Years Used Date Smoking Tobacco: Never Smokeless Tobacco: Never Alcohol Use Standard Drinks/Week Comments No 0 (1 standard drink = 0.6 oz pur e alcohol) Adolescent Education Answer Date Record ed Getting School Help Needed Not on file 09/19 Sex and Gender Information Value Date Recorded Sex Assigned at Not on file Legal Sex Male 6:12 PM CDT Gender Identity Not on file Sexual Orientation Not on file documented as of this encounter Plan of Treatment Upcoming Encounters Date Type Department Care Team (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 Visit [facility] [address] [facility] [address] [place] [phone] Qing Savage, JANIYA [address] [place] [phone] documented as of this encounter Visit Diagnoses Not on filedocumented in this encounter Care Teams Virtual Customer Assistant Relationship Specialty Start Date End Date [address] [address] PCP - General 03/20/18 Qing Savage, PAJonathanC [facility] [address] Assigned Cancer Care Provider 06/11/24 documented as of this encounter
--- OUTSIDE RECORDS SUMMARY | 2025-04-25 12:50 | XMS_ITS | Clinical Summary ---
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 4 Active sirolimus (GENERIC EQUIVALENT) 1 MG tabletIndications:Ev an's syndrome (H),Idiopathic thrombocytopenic purpura (H) Take 3 tablets (3 mg) by mouth daily. 270 tablet 5 Active Active Problems Problem Noted Date Diagnosed Date Suicidal behavior 03/21/2018 Encounters Date Type Department Care Team Description 04/25/2025 Telephone [facility] [address] [facility] [address] [place] [address] Saurabh Lerner RN 03/18/2025 [facility] [address] [place] [phone] Yaneth Valencia RN 03/11/2025 [facility] [address] [facility] [address] [place] [address] Yaneth Valencia RN 02/04/2025 Telephone [facility] [address] [facility] [address] [place] [address] Yaneth Valencia, RN from Last 3 Months Immunizations Immunization Administration Dates Next Due Influenza Vaccine >6 months,quad, PF 03/22/2018 Family History Medical History Relation Comments Celiac Disease Mother Relation Status Comments Mother Social History Tobacco Use Types Packs/Day Years Used Date Smoking Tobacco: Never Smokeless Tobacco: Never Tobacco Cessation:Counseling Given: Not Answered Alcohol Use Standard Drinks/Week Comments No 0 (1 standard drink = 0.6 oz pur e alcohol) Adolescent Education Answer Date Record ed Getting School Help Needed Not on file 09/19 Sex and Gender Information Value Date Recorded Sex Assigned at Not on file Legal Sex Male 6:12 PM CDT Gender Identity Not on file Sexual Orientation Not on file Last Filed Vital Signs Vital Sign Reading Time Taken Comments Blood Pressure 122/82 05/24/2024 9:36 AM ACTUARIAL TRAINEE Pulse 63 05/24/2024 9:36 AM ACTUARIAL TRAINEE Temperature 36.5 C (97.7 F) 05/24/2024 9:36 AM ACTUARIAL TRAINEE Respiratory Rate 18 03/21/2018 1:00 AM CDT Oxygen Saturation 97% 05/24/2024 9:36 AM ACTUARIAL TRAINEE Inhaled Oxygen Concentration - - Weight 114.1 kg (251 lb 9.6 oz) 05/24/2024 9:36 AM ACTUARIAL TRAINEE Height 193 cm (6' 4) 05/24/2024 9:36 AM ACTUARIAL TRAINEE Body Mass Index 30.63 05/24/2024 9:36 AM ACTUARIAL TRAINEE Plan of Treatment Upcoming Encounters Date Type Department Care Team (Late st Contact Info) Description 06/27/2025 2:30 PM ACTUARIAL TRAINEE Office Visit [facility] [address] [place] [address] [address] [place] [address] Qing Savage PAJonathanC [address] [place] [address] Health Maintenance Due Date Last Done Comments ADVANCE CARE PLANNING 2002 ANNUAL REVIEW OF HM ORDERS 2002 HEPATITIS B VACCINE (4 of 4 - 4-dose series) 06/12/2003 06/03/2003, 04/17/2003, 02/08/2003 YEARLY PREVENTIVE VISIT 2005 COVID-19 VACCINE (#1) 11/27/2007 HIV SCREENING 2017 MENINGITIS B VACCINE (1 of 2 - Standard) 2018 HPV VACCINE (3 - Risk male 3 -dose series) 02/01/2019 10/02/2018, 02/17/2016 HEPATITIS C SCREENING 2020 PNEUMOCOCCAL VACCINE: PEDIAT RICS (0 to 5 YEARS) AND AT-RISK PATIENTS (6 to 49 YEARS) (1 of 2 - PCV) 2021 06/03/2003, 04/17/2003, 02/08/2003 ZOSTER VACCINE (1 of 2) 2021 PHQ-2 (once per calendar year) 2024 INFLUENZA VACCINE (#1) 2025 , 03/22/2018, 03/17/2017, Additional history exists DTAP/TDAP/TD VACCINE (6 - Td or Tdap) 02/16/2026 02/17/2016, 08/19/2009, 06/03/2003, Additional history exists MENINGITIS VACCINE Completed 04/17/2021, 02/17/[address] [facility] CHOICE [id number] [id number] Care Teams Business Systems Architect Relationship Specialty Start Date End Date Children[address] [address] PCP - General 03/20/18 Qing Savage, PAJonathanC [facility] [place] [address] Assigned Cancer Care Provider 06/11/24
--- OUTSIDE RECORDS SUMMARY | 2025-04-25 12:50 | XMS_ITS | Patient Health Record ---
Author Organization [facility] Address [address] [facility] [address] [place] [address] Care Team Providers Care Tie Presser Name Role Phone Marlon MCINTYRE, José Miguel Primary Care Provider NIKKIDAKSHA TATEIA Unavailable [phone] Serene MCINTYRE, Talia Unavailable [phone] Reason For Referral No Information Social History Social History PSA Social History Social Info Question Answer Notes SMOKING STATUS 13Y AND OLDER Are you a: Non-Smoker Education: Is the Child in School? Yes What Grade? 7th Additional Details Category Social Info Options Details PSA Social History Child Lives At: Home Child Lives With: Mother,Other Day Care No Siblings 3 Alcohol/Drugs? No Activities / Interests? baseball , running, biking, video games, reading, youth group, outdoors Others Residing In Home: All Mem bers: Mom, Step Dad, Brother, Sister, Step Sister Employment No Recent Travel no Plan Of Treatment No Information Insurance Providers Payer Name Payer Address Payer Phone Subscriber Number Group Number Insured Name Patient Relationship to Insured Coverage Start Date Coverage End Date SYSTEMS [address] [address] [place] [address] [id number] [employer] [facility] - Insured has Financial Responsibility
--- OUTSIDE RECORDS SUMMARY | 2025-04-25 12:50 | XMS_ITS | Clinical Summary ---
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 Active sirolimus (RAPAMUNE) 1 mg tablet Take 3 mg by mouth once daily. 08/12/2021 Active ferrous sulfate 325 mg delayed release tablet Take 1 Tablet (325 mg) by mouth once daily with a meal. 90 Tablet 3 10/08/2022 Active SUMAtriptan 50 mg tabletIndicatio ns:Migraine syndrome Take 1 Tablet (50 mg) by mouth every 2 hours if needed for Migraine. Give at minimum 2hrs apart. Max Dose: 200mg per 24hrs. 12 Tablet 5 09/19/2024 Active ketorolac 10 mg tabletIndicatio ns:Migraine syndrome Take 1 Tablet (10 mg) by mouth every 6 hours if needed for Pain. Maximum of 40 mg in 24 hours. 20 Tablet 2 09/19/2024 Active prochlorperazin e 10 mg tabletIndicatio ns:Migraine syndrome Take 1 Tablet (10 mg) by mouth every 6 hours if needed for Nausea/Vomit ing. 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 Starting sertraline. Feb 2022: increased sertraline (Zoloft) to 100mg. June 2023: Increased sertraline (Zoloft) to 150mg. 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 THRUSH - 02/05/2003 Immunizations Immunization Administration Dates Next Due [id number] (Pediarix) 06/03/2003,04/17/2003,0 02/08/2003 DTaP-IPV (Kinrix) 08/19/2009 HIB PRP-OMP (PedvaxHIB) 06/03/2003,04/17/2003, HPV 9 (Gardasil 9) 10/02/2018,02/17/2016 Influenza, IIV4 03/22/2018 Influenza, IIV4 (=>6mos) MDV 03/17/2017,04/16/20 15 MENINGOCOCCAL VACCINE 2 VIAL 2MO-55YO (MENVEO) 04/17/2021,02/17/2016 MMR 08/19/2009,12/26/2003 Pneumococcal conj 7-Valent (Prevnar 7) 3,04/17/2003,02/08/2003 Tdap 02/17/2016 Varicella Vaccine 08/19/2009,12/26/2003 Family History Medical History Relation Name Comments Genetic Other Healthy Relation Name Status Comments Other Social History Tobacco Use Types Packs/Day Years Used Date Smoking Tobacco: Never Smokeless Tobacco: Never Tobacco Cessation:Counseling Given: Yes Comments:non-smoking home Alcohol Use Standard Drinks/Week Comments Not Currently 4 (1 standard drink = 0.6 oz pure alcohol) 4-5 drinks per month - 0 since starting Zoloft PHQ-2 Answer Date Recorded PHQ-2 TOTAL SCORE 6 07/08/2023 Social Connections Answer Date Recorded Do you often feel lonely or isolated from those around you? 0 09/19/2024 Financial Resource Strain Answer Date R ecorded Difficulty of Paying Living Expenses 3 09/19/2024 Difficulty of Paying Living Expenses Not on file 09/19/2024 Food Insecurity Answer Date Recorded Do you worry your food will run out before you are able to buy more? 1 09/19/2024 Transportation Needs Answer Date Record ed Does lack of transportation keep you from medica l appointments? 1 09/19/2024 Does lack of transportation keep you from work, meetings or getting things that you need? 1 09/19/2024 Housing Stability Answer Date Recorded What is your housing situation today? 1 09/19/2024 Utilities Answer Date Recorded Do you have trouble paying f or utilities (for example, heat, electricity, water, phone)? 1 09/19/2024 Sex and Gender Information Value Date Recorded Sex Assigned at Not on file Legal Sex Male 5:50 AM ASSOCIATE BUYER Gender Identity Not on file Sexual Orientation Not on file Obstetrics History Last Filed Vital Signs Vital Sign Reading Time Taken Comments Blood Pressure 120/78 09/19/2024 8:50 AM CDT Pulse 64 09/19/2024 8:50 AM CDT Temperature 36.4 C (97.6 F) 09/19/2024 8:50 AM CDT Respiratory Rate 15 05/07/2022 12:0 4 PM ASSOCIATE BUYER Oxygen Saturation 98% 09/19/2024 8:50 AM CDT Inhaled Oxygen Concentration - - Weight 120.6 kg (265 lb 12.8 oz) 09/19/2024 8:50 AM CDT Height 193 cm (6' 4) 05/07/2022 12:04 PM ASSOCIATE BUYER Body Mass Index - - Plan of Treatment Health Maintenance Due Date Last Done Comments Hepatitis B series for 19+ (4 of 4 - 4-dose series) 06/12/2003 06/03/2003, 04/17/2003, 02/08/2003 HIV for age 15-65 2017 HPV series for age 9-45 (3 - Risk male 3-dose series) 02/01/2019 10/02/2018, 02/17/2016 Hepatitis C screening for age 18-79 2020 BMI (ht and wt on same day) for age 18+ 05/07/2023 05/07/2022, 03/05/2022, 02/11/2022 Depression screening for age 12+ 07/11/2024 07/11/2023, 07/08/2023, 10/08/2022, Additional history exists Influenza Vaccine (#1) 2025 8, 03/17/2017, 04/16/2015 Tetanus booster 02/16/2026 02/17/2016 RSV vaccine for adults or (1 - 1-dose 75+ series) 2077 Pneumococcal series for age 6-49 Aged Out 06/03/2003, 04/17/2003, 02/08/2003 No longer eligible based on patient's age to complete this topic Insurance [facility]
--- OUTSIDE RECORDS SUMMARY | 2025-04-25 12:50 | XMS_ITS | Encounter Summary ---
Author Organization [facility] Address [address] [place] [address]. [place] [address] Care Team Providers Care Pulp Beater Name Role Phone [facility] Care Prov ider Qing Savage PA-C Unavailable [phone] Encounter Details Date Type Department Care Team (Late Contact Info) Description 04/25/2025 Telephone [facility] [address] [place] [phone] Saurabh Lerner RN Social History Tobacco Use Types Packs/Day [...] Upcoming Encounters Date Type Department Care Team ([facility] Contact Info) Description 06/27/2025 2:30 PM PRINTING EQUIPMENT MECHANIC Office Visit [facility] [address] [facility] [address] [place] [address] Qing Savage, JANIYA [address] [place] [phone] documented as of this encounter Visit Diagnoses Not on filedocumented in this encounter Care Teams Pulp Beater Relationship Specialty Start Date End Date [address] [address] PCP - General 03/20/18 Qing Savage, PAJonathanC [facility] [address] Assigned Cancer Care Provider 06/11/24 documented as of this encounter
--- OUTSIDE RECORDS SUMMARY | 2025-04-25 12:50 | XMS_ITS | Encounter Summary ---
Author Organization [facility] Address [address] [place] [address]. [place] [address] Care Team Providers Care Industrial Automation Specialist Name Role Phone [facility] Primary Care Prov ider Qing Savage PA-C Unavailable [phone] Encounter Details Date Type Department Care Team (Late st Contact Info) Description 03/18/2025 Telephone [facility] [address] [place] [phone] Yaneth Valencia RN Social History Tobacco Use [...] on file documented as of this encounter Miscellaneous Notes * Addendum Note - Yaneth Valencia RN - 03/18/2025 12:07 PM CDTAddended by: YANETH VALENCIA on: 03/19/2025 01:49 PM Modules accepted: Orders documented in this encounter Plan of Treatment Upcoming Encounters Date Type Department Care Team (Late st Contact Info) Description 06/27/2025 2:30 PM DIABETES CLINICAL MANAGER Office Visit [facility] [address] [place] [address] [address] [place] [address] Qing Savage PA-C [address] [place] [address] documented as of this encounter Visit Diagnoses Diagnosis Jose's syndrome (H) Rai' syndrome Idiopathic thrombocytopenic purpura (H) Immune thrombocytopenic purpura documented in this encounter Care Teams Industrial Automation Specialist Relationship Specialty Start Date End Date [address] [place] [address] PCP - General 03/20/18 Qing Savage, JANIAY [facility] [address] Assigned Cancer Care Provider 06/11/24 documented as of this encounter
[2025-04-25 12:52] VITALS: BP 142/87; PULSE 70; RESP 20; TEMP 36.6; O2SAT 98; BMI 28.5
--- NOTE | 2025-04-25 13:01 | ED.GENADULT ---
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 Patient states he has not been feeling well over the last week, started having increased nausea and vomiting, multiple times a day, he noticed yesterday that there was some blood in his vomitus, bright red. Today around 5 am he had an episode of vomiting with a large dark clot. Abdominal pain started yesterday, epigastric region, constant, pulsating like, denies any diarrhea or blood in the stool, normal urinary habits, stills had increased fatigue and weakness. No real cough, chest pain or shortness of breath, he has had increasing sore throat. The patient needs he gets very nauseated and throws up. His friend recently had strep pharyngitis, mono and a ear infection. Patient denies any fevers but has had ongoing chills. He has not been taking anything for the pain. For is Rai syndrome [facility] 23 years old, transitioned his care to the [facility], he has not seen a provider over a year. Patient did have a surgery done involving his liver when he was a child. no other surgeries. Pain is 8. Related Data Home Medications ?Medication ?Instructions ?Recorded ?Confirmed sirolimus 1 mg tablet mg PO 02/09/22 sertraline 100 mg tablet 150 mg PO QAM 01/09/24 01/09/24 Previous Rx's ?Medication ?Instructions ?Recorded ondansetron HCl 4 mg tablet 4 mg PO BID-TID PRN nausea and 01/09/24 vomiting #14 tabs ondansetron 4 mg disintegrating 4 mg PO Q8H #15 tabs 04/25/25 tablet pantoprazole 40 mg tablet,delayed 40 mg PO DAILY #10 tabs 04/25/25 release (Protonix) Allergies Allergy/AdvReac Type Severity Reaction Status Date / Time succinylcholine Allergy Unknown Verified 04/25/25 14:19 Review of Systems Status of ROS: Reports: 10 or more systems reviewed and unremarkable except as noted in History and below PFSH PFSH Social History Smoking Status: Current every day smoker Do you use any of these nicotine containing products: Vaping Products How often do you have a drink containing alcohol: never AUDIT-C Alcohol total score: 0 Non-prescribed substance use: marijuana (any form) service: No Exam Narrative: Exam Narrative: General: No obvious distress sitting comfortably. HEENT: Mild post oropharyngeal erythema, uvula midline, no appreciable peritonsillar abscess Neck: Supple full range of motion, tympanic membranes within normal limits bilaterally Lungs: Clear to auscultation bilaterally Heart: Normal sinus rhythm S1-S2 Abdomen: Soft, bowel sounds hyperactive, tender to palpation the epigastric region, no palpable mass, no rebound or guarding Muscle skeletal: +5 strength upper lower extremity, no edema Neuro: GCS 15 Const: Vital Signs, click to edit/add: Vital Signs - 24 hr 04/25/25 12:52 04/25/25 14:49 Temperature 98 F Pulse Rate [Pulse Oximeter] 70 56 L Respiratory Rate 20 16 Blood Pressure [Ri ght Upper Arm] 142/87 H 128/92 H Pulse Oximetry 98 98 Oxygen Delivery Me thod Room Air Room Air Course Course ED Course: ED course: 1:30 PM: aidet performed, vitals are stable at this time, workup will include IV peripheral, 0.9 normal saline bolus, 40 mg IV Protonix, 50 mg IV Toradol, will obtain CBC, CRP, CMP, lipase, rapid strep PCR, Monospot, suspect Christa-Figueroa tear in the setting of ongoing vomiting, other considerations are an gastroenteritis, drug food poisoning, less likely bowel obstruction, possible cholecystitis, pancreatitis, appendicitis. Will plan to rule out any thrombocytopenia, anemia or neutropenia. ED disposition pending clinical course. Reevaluation(s) Time of Reevaluation #1: 14:29 Reevaluation #1: Imaging: IMPRESSION: 1. Hepatic steatosis. 2. Mildly enlarged but otherwise unremarkable appearing spleen. This is unchanged. 3. Examination is otherwise unremarkable. 4. Regarding the history of hematemesis, this study was not performed as a multiphase GI bleeding study. However, there is nothing to suggest active GI bleeding on this nondedicated exam. CBC showed no leukocytosis or anemia, no thrombocytopenia, no neutropenia, comprehensive metabolic panel showed normal electrolytes, renal function LFTs, lipase within normal limits, CRP 1.8, mono screen negative strep a DNA probe also negative, imaging shown as above, nothing and acute, he was given the above care in addition to GI cocktail for symptoms, patient was tolerating orals and wished to be discharged, prescription for Protonix EC 40 mg daily over the next 10 days, follow-up will be arranged with primary care provider here in [place], reasons return were given. Vital Signs Vital signs: Initial Vital Signs Temperature 98 F 04/25/25 12:52 Temperature Source Temporal Artery Scan 04/25/25 12:52 Pulse Rate 70 04/25/25 12:52 Respiratory Rate 20 04/25/25 12:52 Blood Pressure 142/87 H 04/25/25 12:52 Blood Pressure Mean 105 04/25/25 12:52 Blood Pressure Position Sitting 04/25/25 12:52 Pulse Oximetry 98 04/25/25 12:52 Oxygen Delivery Method Room Air 04/25/25 12:52 Vital Signs Temperature 98 F 04/25/25 12:52 Pulse Rate 70 04/25/25 12:52 Respiratory Rate 20 04/25/25 12:52 Blood Pressure 142/87 H 04/25/25 12:52 Pulse Oximetry 98 04/25/25 12:52 Oxygen Delivery Method Room Air 04/25/25 12:52 Temperature 98 F 04/25/25 12:52 Pulse Rate 56 L 04/25/25 14:49 Respiratory Rate 16 04/25/25 14:49 Blood Pressure 128/92 H 04/25/25 14:49 Pulse Oximetry 98 04/25/25 14:49 Oxygen Delivery Method Room Air 04/25/25 14:49 Medications Administered Medications: Discontinued Medications Generic Name Dose Route Start Last Admin Trade Name Freq PRN Reason Stop Dose Admin Sodium Chloride 1,000 mls @ 1,000 mls/hr 04/25/25 14:00 04/25/25 15:21 0.9 % Sodium Chloride 1000 Ml IV 04/25/25 14:59 Infused .Q1H JOEL Infusion Ketorolac Tromethamine 15 mg 04/25/25 13:13 04/25/25 13:30 Ketorolac 15 Mg/Ml Inj IVP 04/25/25 13:14 15 mg ONCE ONE Administration Lidocaine/Aluminum/Magnesium/Simeth 30 ml 04/25/25 14:32 04/25/25 14:38 Gi Cocktail (Visc Lido/Antacid) 30 Ml PO 04/25/25 14:33 30 ml ONCE ONE Administration Pantoprazole Sodium 40 mg 04/25/25 13:13 04/25/25 13:30 Pantoprazole Sodium 40 Mg Inj IVP 04/25/25 13:14 40 mg ONCE ONE Administration Medical Decision Making Lab Data Labs: Lab Results 04/25/25 Range/Units 13:25 WBC 6.83 (4.50-11.00) K/uL RBC 4.84 (4.30-5.90) m/uL Hgb 13.5 (13.5-17.5) gm/dL Hct 40.8 (37.0-53.0) % MCV 84 (80-100) fL MCH 28 (26-34) pg MCHC 33 (32-36) gm/dL RDW Coeff of Grecia 13.1 (11.5-15.5) % Plt Count 239 (140-440) K/uL Neut % (Auto) 50.4 (42.0-72.0) % Lymph % (Auto) 40.7 (20-44) % [place] % (Auto) 7.8 (0.0-11.0) % Eos % (Auto) 0.9 (0.0-7.0) % Baso % (Auto) 0.1 (0.0-3.0) % Neut # (Auto) 3.44 (1.7-7.0) K/uL Lymph # (Auto) 2.78 (0.90-2.90) K/uL [place] # (Auto) 0.50 (0.00-0.90) K/UL Eos # (Auto) 0.06 (0.00-0.50) K/uL Baso # (Auto) 0.01 (0.00-0.30) K/uL Abs Immat Gran (auto) 0.01 (0.00-0.30) K/uL Imm/Tot Granulo (auto) 0.1 % Sodium 139 (135-149) mmol/L Potassium 4.1 (3.6-5.1) mmol/L Chloride 102 (96-114) mmol/L Carbon Dioxide 28 (20-32) mmol/L Anion Gap 9 (7-15) mEq/L BUN 13 (5-24) mg/dL Creatinine 0.7 (0.5-1.5) mg/dL Estimated Creat Clear 197.84 Estimated GFR 134 ml/min Glucose 98 (60-115) mg/dL Calcium 9.5 (8.4-10.6) mg/dL Total Bilirubin 0.5 (0.1-1.5) mg/dL AST 21 (12-35) U/L ALT 15 (4-50) U/L Alkaline Phosphatase 98 (40-150) U/L C-Reactive Protein 1.8 H (0.5-1.0) mg/dL Total Protein 7.4 (6.0-8.3) g/dL Albumin 4.4 (3.3-5.0) g/dL Lipase 33 (23-300) U/L Monoscreen Negative (Negative) Group A Strep DNA NOT DETECTED (Not Detectd) Discharge Plan Discharge Clinical Impression: Hematemesis, Nausea & vomiting, Abdominal pain Patient Disposition: Home, Self-Care Condition: Improved Instructions: Acute Nausea and Vomiting (ED), Abdominal Pain (ED) Additional Instructions: Protonix EC 40 mg daily in the morning 30 minutes prior to to eating, can also take [id number] Pepcid 20 mg twice daily, to follow up with a primary care provider Dr. Chaney here in [facility], return if worsening symptoms. Activity Level: No Restrictions Discharge Diet: Regular Prescriptions: New pantoprazole [Protonix] 40 mg tablet,delayed release (DR/EC) 40 mg PO DAILY Qty: 10 0RF ondansetron 4 mg tablet,disintegrating 4 mg PO Q8H Qty: 15 0RF No Action sirolimus 1 mg tablet PO Patient Comments: TAKE THREE TABLETS BY MOUTH EVERY DAY sertraline 100 mg tablet 150 mg PO QAM ondansetron HCl 4 mg tablet 4 mg PO BID-TID PRN (Reason: nausea and vomiting) Qty: 14 0RF Follow Up/Referrals: Provider,Not a Local [Primary Care Provider, Family Practice] Stand Alone Forms: [employer] Info Instructions
[2025-04-25] MEDS: PANTOPRAZOLE SODIUM 40 MG INJ IVP (13:30)
[2025-04-25 13:39] LABS: Hematocrit* 40.8 % (37.0-53.0); Hemoglobin* 13.5 gm/dL (13.5-17.5); Immature Granulocytes Abs Auto 0.01 K/uL (0.00-0.30); Immature Granulocytes Pct Auto 0.1 %; Lymphocytes Absolute Auto 2.78 K/uL (0.90-2.90); Mean Corpuscular HGB Conc 33 gm/dL (32-36); Mean Corpuscular Hemoglobin 28 pg (26-34); Mean Corpuscular Volume 84 fL (80-100); RDW Coefficient of Variation % 13.1 % (11.5-15.5); Red Blood Count* 4.84 m/uL (4.30-5.90); White Blood Count* 6.83 K/uL (4.50-11.00)
[2025-04-25 13:40] LABS: Slide Review Reflex No
[2025-04-25 13:49] LABS: Mono Screen* Negative (Negative)
[2025-04-25 13:51] LABS: Albumin* 4.4 g/dL (3.3-5.0); Chloride* 102 mmol/L (96-114); Potassium* 4.1 mmol/L (3.6-5.1); Sodium* 139 mmol/L (135-149)
[2025-04-25 13:53] LABS: Blood Urea Nitrogen* 13 mg/dL (5-24); Creatinine* 0.7 mg/dL (0.5-1.5); Est. Creatinine Clearance* 197.84; Estimated Glomerular Filt Rate 134 ml/min
[2025-04-25 13:54] LABS: Alanine Aminotransferase* 15 U/L (4-50); Alkaline Phosphatase* 98 U/L (40-150); Anion Gap 9 mEq/L (7-15); Aspartate Amino Transferase* 21 U/L (12-35); Bilirubin Total* 0.5 mg/dL (0.1-1.5); Calcium* 9.5 mg/dL (8.4-10.6); Carbon Dioxide* 28 mmol/L (20-32); Glucose* 98 mg/dL (60-115); Total Protein* 7.4 g/dL (6.0-8.3)
--- NOTE | 2025-04-25 14:00 | CRLHL7_ITS ---
For Patients: As a result of the Century Cures Act, medical imaging exams and procedure reports are released immediately into your electronic medical record. You may view this report before your referring provider. If you have questions, please contact your health care provider. INDICATION: Jose`s syndrome. Hematemesis. COMPARISON: November 15, 2021 TECHNIQUE: CT examination of the abdomen and pelvis was performed following the uneventful intravenous administration of 111 cc of Isovue 370. Thin section axial images were obtained from the lung bases through the pubic symphysis. Oral contrast was not administered. Please note that all CT scans at this facility use dose modulation, iterative reconstruction, and/or weight-based dosing when appropriate to reduce radiation dose to as low as reasonably achievable. FINDINGS: LUNG BASES: The lung bases as visualized appear normal.The heart size is normal at the lung bases. LIVER/BILIARY SYSTEM:The liver is normal in size and configuration. There is no focal mass and there is no intra- or extra hepatic biliary ductal dilatation.Hepatic steatosis. Normal-appearing gallbladder ADRENALS: Normal KIDNEYS, URETERS and BLADDER:The kidneys appear normal. No visible mass, calculus or hydronephrosis. The ureters and bladder as visualized appear normal. SPLEEN:Mildly enlarged but similar to the prior exam. PANCREAS: Appears normal. RETROPERITONEUM and MESENTERY: There is no mass, adenopathy or aortic aneurysm. GASTROINTESTINAL SYSTEM: There is no evidence of diverticulitis, colitis, mechanical obstruction, or appendicitis. The small bowel as visualized appears normal. PELVIS: No mass, adenopathy or free fluid. OSSEOUS STRUCTURES and ABDOMINAL WALL: There is an age-appropriate appearance of the osseous structures.No significant abdominal wall defect. OTHER: No free fluid or free air. IMPRESSION: 1. Hepatic steatosis. 2. Mildly enlarged but otherwise unremarkable appearing spleen. This is unchanged. 3. Examination is otherwise unremarkable. 4. Regarding the history of hematemesis, this study was not performed as a multiphase GI bleeding study. However, there is nothing to suggest active GI bleeding on this nondedicated exam. Please note that all CT scans at this facility use dose modulation, iterative reconstruction, and/or weight-based dosing when appropriate to reduce radiation dose to as low as reasonably achievable. Dictated by Gregorio Alexandre MD @ 04/25/2025 2:24:35 PM (Electronically Signed)
[2025-04-25 14:38] LABS: Strep A DNA Probe* NOT DETECTED (Not Detectd)
[2025-04-25] MEDS: GI COCKTAIL (VISC LIDO/ANTACID) 30 ML PO (14:38)
[2025-04-25 14:49] VITALS: BP 128/92; PULSE 56; RESP 16; O2SAT 98
== END 2025-04-25 15:42 | disposition home or self-care (01) ==
PROVIDERS: Emergency Provider Student in an Organized Health Care Education/Training Program
DX: K92.0 Hematemesis (principal); R10.13 Epigastric pain; F17.290 Nicotine dependence, other tobacco product, uncomplicated
CPT/HCPCS: 36415; 74177; 80053; 83690; 85025; 86140; 86308; 87651; 96361; 96374; 96375; 99283; 99284; 99285; A9270; J1885; J2470; J7030; Q9967

== ENCOUNTER 2025-05-02 16:52 | Outpatient (CLI) | payer OTHER, SELFPAY | END 2025-05-02 16:53 | disposition home or self-care (01) | PROVIDERS: PCP Internal Medicine; Visit Provider Internal Medicine | DX: R04.2 Hemoptysis (principal) | CPT/HCPCS: 80195; 85610; 85730; 86880 ==